=== PATIENT | male | born 1935 | race Caucasian/White ===

== ENCOUNTER 2017-01-22 18:16 | Emergency (ER) | payer SELFPAY ==
[~2017-01-22] VITALS: Ht 182.9 cm; Wt 90.7 kg
[2017-01-22] MEDS ORDERED: ONDANSETRON HCL/PF 4 MG/2 ML VIAL ONE (18:23)
[2017-01-22] MEDS ORDERED: IV SET PRIMARY 1 EA INFUS.SET MC ONE (18:23)
[2017-01-22] MEDS ORDERED: IV NS 0.9% 500 ML IV ONE (18:23)
[2017-01-22] MEDS ORDERED: PANTOPRAZOLE 40 MG VIAL ONE (18:23)
[2017-01-22] MEDS ORDERED: PANTOPRAZOLE 40 MG VIAL IV ONE (18:30)
[2017-01-22] MEDS ORDERED: IV NS 0.9% 500 ML BAG IV ONE (18:30)
[2017-01-22] MEDS ORDERED: ONDANSETRON HCL/PF 4 MG/2 ML VIAL IVP ONE (18:30)
[2017-01-22] MEDS ORDERED: ACET-868 PO (18:33)
[2017-01-22] MEDS ORDERED: LOSA50TA21 PO (18:33)
[2017-01-22] MEDS ORDERED: HYDR-3326 PO (18:33)
[2017-01-22] MEDS ORDERED: RANI150C4 PO (18:33)
[2017-01-22 18:58] LABS: BASOPHILS # (AUTO) 0.1 /CMM (0.0-0.2); BASOPHILS % (AUTO) 0.3 % (0.0-2.0); DIFF TOTAL % 100 %; EOSINOPHILS % (AUTO) 0.2 % (0.0-6.0); HEMATOCRIT 48 % (39-51); LYMPHOCYTES % (AUTO) 6.4 % (20.0-44.0); MEAN CORPUSCULAR HEMOGLOBIN 32 PG (26.0-33.0); MEAN CORPUSCULAR HGB CONC 33 g/dl (31.0-36.0); MEAN CORPUSCULAR VOLUME 95 fL (80-96); MONOCYTES # (AUTO) 0.3 /CMM (0.1-1.30); MONOCYTES % (AUTO) 1.9 % (2.0-12.0); NEUTROPHILS # (AUTO) 14.6 /CMM (1.8-8.9); NEUTROPHILS % (AUTO) 91.2 % (43.0-81.0); PLATELET COUNT (AUTO) 250 /CMM (150-450); RED BLOOD CELL COUNT(AUTO) 5.06 MIL/uL (4.5-6.0)
[2017-01-22 19:12] LABS: ANION GAP 9 (5-14); CALCIUM, SERUM 9.4 mg/dL (8.5-10.1); CARBON DIOXIDE 32 mmol/L (21-32); CHLORIDE 105 mmol/L (98-107); GLUCOSE 133 mg/dL (74-106); SODIUM SERUM 142 mmol/L (136-145); UREA NITROGEN, BLOOD 20 mg/dL (7-18)
[2017-01-22 19:15] LABS: TROPONIN I < 0.017 ng/mL (0.00-0.056)
[2017-01-22 19:18] LABS: ALANINE AMINOTRANSFERASE 25 U/L (12-78); ALBUMIN 3.7 g/dL (3.4-5.0); ASPARTATE AMINOTRANSFERASE 17 U/L (15-37); BILIRUBIN,DIRECT 0.1 mg/dL (0.0-0.2); BILIRUBIN,TOTAL 0.4 mg/dL (0.2-1.0); INDIRECT BILIRUBIN 0.3 mg/dL (0.0-1.1); TOTAL PROTEIN, SERUM 8.2 g/dL (6.4-8.2)
[2017-01-22 19:28] LABS: INR 1.04 (0.87-1.13); PROTHROMBIN TIME 11.2 SECS (9.5-12.7)
[2017-01-22 22:01] LABS: KETONES,URINE NEGATIVE (NEGATIVE); LEUKOCYTE ESTERASE ,URINE NEGATIVE (NEGATIVE)
[2017-01-22 22:10] LABS: ADD UA MICROSCOPIC YES
[2017-01-22 22:19] LABS: ADD URINE CULTURE NO
[2017-01-23 00:34] VITALS: BP 144/79
== END 2017-01-23 00:35 | disposition home or self-care (01) ==
LOC: ER 18:20
DX: R11.10 Vomiting, unspecified (principal); F03.90 Unspecified dementia, unspecified severity, without behavioral disturbance, psychotic disturbance, mood disturbance, and anxiety; Z95.0 Presence of cardiac pacemaker; I10 Essential (primary) hypertension
CPT/HCPCS: 71010; 74176; 80048; 80076; 81001; 83690; 84484; 85025; 85730; 86850; 93005 ×2; 96374; 96375; 99285; A4606; C9113; J2405; J7040; Z7610; 81000-TC